=== PATIENT | male | born 1985 | race Two or more races ===

== ENCOUNTER → 2024-09-10 | Outpatient (CLI) | payer OTHER, SELFPAY ==
--- NOTE | 2024-09-10 08:43 | XR_ITS ---
Examination: Thoracic spine 3 views Technique one AP lateral coned lateral upper dorsal spine 3 views Exam date and time: September 10, 2024 0936 hours INDICATIONS: Work injury to the back 2 weeks ago back pain FINDINGS: Thoracic dextroscoliosis 10 degrees No thoracic fracture Minimal thoracic spondylosis IMPRESSION: No thoracic fracture Minimal thoracic spondylosis
--- NOTE | 2024-09-10 08:43 | XR_ITS ---
EXAMINATION: Cervical spine, 5 views Technique: Cervical spine AP, AP odontoid, lateral, bilateral obliques, 5 views Exam date and time: September 10, 2024 0916 hours INDICATIONS: Work injury to the neck 2 weeks ago, neck pain FINDINGS: Straightening normal cervical lordosis. No cervical fracture. Intact odontoid. No cervical disc narrowing No neural foraminal stenosis IMPRESSION: No cervical fracture No cervical disc narrowing
--- NOTE | 2024-09-10 08:43 | XR_ITS ---
Examination: Shoulder bilateral, 6 views Technique: Shoulder AP internal rotation, AP external rotation, Y view each shoulder total 6 views Exam date and time :September 10, 2024 0916 hours INDICATIONS: Work injury to both shoulders 2 weeks ago with shoulder pain FINDINGS: No fracture or shoulder dislocation bilaterally No AC joint separations No calcific tendinitis IMPRESSION: No fracture or dislocation involving either shoulder
== END | disposition home or self-care (01) ==
LOC: COPL 08:41 → CDIM 09-15 14:36
PROVIDERS: PCP Family Medicine; Referring Provider Family Medicine; Visit Provider Family Medicine
DX: M47.814 Spondylosis without myelopathy or radiculopathy, thoracic region (principal); M54.2 Cervicalgia; M25.512 Pain in left shoulder; M25.511 Pain in right shoulder; S19.9XXS Unspecified injury of neck, sequela; S29.9XXS Unspecified injury of thorax, sequela; S49.92XS Unspecified injury of left shoulder and upper arm, sequela; S49.91XS Unspecified injury of right shoulder and upper arm, sequela; X58.XXXS Exposure to other specified factors, sequela
CPT/HCPCS: 72050; 72070; 73030